=== PATIENT | female | born 1985 | race Caucasian/White ===

== ENCOUNTER → 2018-05-12 | Outpatient (CLI) | payer BC ==
--- NOTE | 2018-05-12 15:51 | RAD ---
EXAM: Left foot, 2 views. HISTORY: Blunt trauma. COMPARISON: None. FINDINGS: 2 views of the left foot are obtained. There is no fracture, dislocation or subluxation. There is a suspected incidental bone island within the calcaneus. IMPRESSION: No acute osseous finding. Electronically signed by: Montserrat Roe MD (05/12/2018 3:47 PM) [id number]
== END | disposition home or self-care (01) ==
LOC: PMG 13:58
PROVIDERS: ATTEND Neuromusculoskeletal Medicine & OMM
DX: S99.822A Other specified injuries of left foot, initial encounter (principal); M79.672 Pain in left foot; W23.0XXA Caught, crushed, jammed, or pinched between moving objects, initial encounter; Y93.89 Activity, other specified; Y92.89 Other specified places as the place of occurrence of the external cause; Y99.8 Other external cause status
CPT/HCPCS: 73620